=== PATIENT | male | born 1935 | race Caucasian/White ===

== ENCOUNTER 2018-07-14 00:55 | Emergency (ER) | payer OTHER, BC ==
[~2018-07-14] VITALS: Ht 172.7 cm; Wt 79.4 kg
[~2018-07-14 00:55] MED LIST: ACETAMINOPHEN325 M1 PO; ACETAMINOPHEN325 MG PO; ALBUTEROL INHAL17 GM IH; ALDACTONE25 MG PO; AVELOX 400 MG400 MG PO; CENTRUM SILVER1 EAC4 PO; COUMADIN 5 MG TA5 M1 PO; COUMADIN7.5 MG PO; DETROL LA4 MG PO; DILTIAZEM 24HR180 M2 PO; DILTIAZEM 24HR180 MG PO; DILTIAZEM 24HR360 MG PO; DILTIAZEM HCL90 MG PO; GLUCOPHAGE1000 MG PO; IRON325 PO; LANOXIN 0.120.125 M1 PO; LANOXIN 0.120.125 M2 PO; LIPITOR10 MG PO; OXYBUTYNIN CHLO15 MG PO; PROTONIX40 M2 PO; TRIAMTERENE-HC1 EAC1 PO; TYLENOL325 MG PO
[2018-07-14] MEDS ORDERED: TYLENOL325 MG PO (02:00)
[2018-07-14] MEDS ORDERED: ASPIR 8181 MG PO (02:00)
[2018-07-14] MEDS ORDERED: LIPITOR 20 MG T20 M1 PO (02:01)
[2018-07-14] MEDS ORDERED: CARDIZEM CD120 MG PO (02:02)
[2018-07-14] MEDS ORDERED: LASIX 40 MG TAB40 M2 PO (02:04)
[2018-07-14] MEDS ORDERED: AMARYL2 MG PO (02:06)
[2018-07-14] MEDS ORDERED: COZAAR 25 MG TA25 M1 PO (02:07)
[2018-07-14] MEDS ORDERED: GLUCOPHAGE XR750 MG PO (02:08)
[2018-07-14] MEDS ORDERED: SENOKOT-S1 TA2 PO (02:09)
[2018-07-14 02:23] LABS: ABSOLUTE NEUTROPHILS 6.6 thou/uL (1.4-8.2); BASOPHILS 0.6 % (0.0-2.0); EOSINOPHILS 6.2 % (0.0-3.0); HEMATOCRIT 31.2 % (42.0-52.0); HEMOGLOBIN 9.8 gm/dL (14.0-18.0); LYMPHOCYTES 12.8 % (24.0-44.0); MCH 23.1 pg (26.0-34.0); MCHC 31.4 g/dL (28.0-37.0); MCV 73.7 fL (80.0-100.0); MONOCYTES 8.6 % (1.0-8.0); PLATELET COUNT 189 thou/uL (150-400); POLYS 71.8 % (36.0-66.0); RBC 4.23 mil/uL (4.50-6.00); WBC 9.2 thou/uL (4.0-11.0)
[2018-07-14 02:26] LABS: ANION GAP 12 mmol/L (7-16); BUN 14 mg/dL (7-18); CALCIUM 8.4 mg/dL (8.5-10.1); CHLORIDE 104 mmol/L (98-107); CO2 21 mmol/L (21-32); CREATININE 1.1 mg/dL (0.7-1.3); GLUCOSE 128 mg/dL (74-106); POTASSIUM 3.9 mmol/L (3.5-5.1); SODIUM 137 mmol/L (136-145)
[2018-07-14 02:35] LABS: TROPONIN-I <0.06 ng/mL (<0.06)
[2018-07-14 05:23] VITALS: BP 119/56
--- NOTE | 2018-07-14 17:01 | EKG ---
[place] [address] [facility] [place] [address] ELECTROCARDIOGRAM REPORT Name: EDWARDO MORA Room #: DEP Velia#: [id number] ������������������ Admission: 07/14/18 ������������������ Attend Phys: Discharge: 07/14/18 ������������������ Date of : 37 Report #: [id number] ����������������������������������������������������������������� [id number] THIS REPORT FOR: //name// [facility] ED Test Date: 2018-07-14 Test Time: 01:14:24 Pat Name: EDWARDO MORA Department: Room: Gender: [place] [place] Manager: ANJELICA : 1935 Requested By: Daphne Cui Order Number: [id number] MD: Isidro Rosenbaum Measurements Intervals [place] Rate: 95 P: 0 [place]: 112 QRS: -56 QRSD: 149 T: 122 QT: 379 QTc: 477 Interpretive Statements Ventricular-paced complexes RBBB and LAFB Compared to ECG 07/28/2014 08:39:50 Left anterior fascicular block now present Atrial fibrillation no longer present ST (T wave) deviation no longer present Electronically Signed On 07-14-2018 17:00:50 CDT by Isidro Rosenbaum [email or web address] ��������������������������������������������� <ELECTRONICALLY SIGNED> ���������������������������������������� By: Isidro Rosenbaum MD ��������������������������������������������� 07/14/18 1700 0114 0114 Isidro Rosenbaum MD /EPI
== END 2018-07-14 05:44 | disposition home or self-care (01) ==
LOC: ER 00:55
PROVIDERS: Emergency Medicine
DX: R06.02 Shortness of breath (principal); I48.91 Unspecified atrial fibrillation; E11.9 Type 2 diabetes mellitus without complications; Z87.891 Personal history of nicotine dependence; Z90.49 Acquired absence of other specified parts of digestive tract

== ENCOUNTER 2020-06-17 15:38 | Inpatient (IN) | payer OTHER, BC ==
[~2020-06-17] VITALS: Ht 172.7 cm; Wt 89.8 kg
[~2020-06-17 15:38] MED LIST changes: +AMARYL2 MG PO; +ASPIR 8181 MG PO; +CARDIZEM CD120 MG PO; +CEPHALEXIN500 MG PO; +COZAAR 25 MG TA25 M1 PO; +DILTIAZEM 24HR180 M1 PO; +FINASTERIDE5 MG PO; +GLUCOPHAGE XR750 MG PO; +LASIX 40 MG TAB40 M2 PO; +LIPITOR 20 MG T20 M1 PO; +SENOKOT-S1 TA2 PO; +TAMSULOSIN HCL0.4 MG PO
[2020-06-17 15:40] VITALS: BP 114/49
[2020-06-17 17:32] LABS: ABSOLUTE NEUTROPHILS 11.4 thou/uL (1.4-8.2); BASOPHILS 0.5 % (0.0-2.0); EOSINOPHILS 1.9 % (0.0-3.0); HEMATOCRIT 26.1 % (42.0-52.0); HEMOGLOBIN 8.5 gm/dL (14.0-18.0); LYMPHOCYTES 9.8 % (24.0-44.0); MCH 27.9 pg (26.0-34.0); MCHC 32.6 g/dL (28.0-37.0); MCV 85.5 fL (80.0-100.0); PLATELET COUNT 275 thou/uL (150-400); POLYS 79.8 % (36.0-66.0); RBC 3.05 mil/uL (4.50-6.00); RDW 18.3 % (10.5-14.5); WBC 14.3 thou/uL (4.0-11.0)
[2020-06-17 17:43] LABS: INR 1.1; PROTIME 11.4 Seconds (9.3-11.4)
[2020-06-17 17:44] LABS: APTT 20.7 Seconds (24.5-32.8)
[2020-06-17 17:51] LABS: URINE BILIRUBIN NEGATIVE (Negative); URINE BLOOD NEGATIVE (Negative); URINE CLARITY CLEAR; URINE COLOR YELLOW; URINE GLUCOSE-RANDOM* NEGATIVE (Negative); URINE KETONES NEGATIVE (Negative); URINE NITRITE-REFLEX NEGATIVE (Negative); URINE PROTEIN (DIPSTICK) NEGATIVE (Negative); URINE SPECIFIC GRAVITY >= 1.030 (1.005-1.035); URINE UROBILINOGEN 0.2 E.U./dl (0.2-1.0)
[2020-06-17 17:56] LABS: URINE LEUKOCYTES-REFLEX 1+ (Negative)
[2020-06-17 17:56] LABS: CALCIUM 7.8 mg/dL (8.5-10.1); CREATININE 1.3 mg/dL (0.7-1.3); POTASSIUM 5.2 mmol/L (3.5-5.1)
[2020-06-17 18:02] LABS: ALBUMIN 3.3 g/dL (3.4-5.0); TOTAL BILIRUBIN 0.7 mg/dL (0.2-1.0); TOTAL PROTEIN 6.3 g/dL (6.4-8.2)
[2020-06-17 18:15] LABS: BACTERIA-REFLEX 1-9 Few /HPF (None Seen); SQUAMOUS None Seen /LPF (0-3); URINE RBC None Seen /HPF (0-2); URINE WBC-REFLEX 6-15 Few /HPF (0-5)
[2020-06-17 18:16] LABS: CASTS None Seen /LPF (None Seen); CRYSTALS None Seen /LPF (None Seen)
[2020-06-17 19:49] VITALS: BP 109/70
[2020-06-17 20:11] VITALS: BP 119/74
[2020-06-17 20:55] VITALS: BP 132/87
--- NOTE | 2020-06-17 22:05 | NUR ---
PT ADMITTED FROM HOME. PT WAS IN ED THIS EARLY AM AND RETURNED AFTER HAVING CONTINUED GI BLEED X 3 AT HOME. PT HAD LARGE BRIGHT RED STOOL IN ED X1. PT SOA WITH EXERTION, DUSKY SKIN TONE. 02 NC, HR IRREG HX AFIBB. PT TALKATIVE CHEERFUL NOT SOA WITH TALKING. PT RECEIVED FLUIDS AND ANTIBIOTICS IN ED. PT SIGNED CONSENT FOR BLOOD. HOME MEDS REVIEWED WITH WHILE PT WAS IN ED.
[2020-06-17 22:52] VITALS: BP 122/73; BP 128/83
--- NOTE | 2020-06-17 23:43 | NUR ---
PT REPORTING FEELING BETTER SOON RBC TRANSFUSION STARTED, PT VERBALIZED HE WAS PLEASED WITH HIS BP.
[2020-06-18] VITALS (42 sets, daily range): BP systolic 96–138; BP diastolic 52–107
--- NOTE | 2020-06-18 00:26 | NUR ---
PT HAD BM WHILE TRANSFUSION GOING REPORTED MODERATED DARK RED LIQUID STOOL BY BOILER CONTROL TECHNICIAN.
--- NOTE | 2020-06-18 01:56 | NUR ---
PT REPORTED ALWAYS FEELINGS SOA WITH MOVEMENT, BLOOD COMPLETED. PT REPORTS PLANS ON 06/24 TO HAVE CARPAL TUNNEL SYNDROME ON L HAND.
--- NOTE | 2020-06-18 06:45 | NUR ---
PROVIDER NOTIFIED LAST NIGHT THAT PT DID NOT TAKE HIS AM MEDS. WELL THAT HOME MEDS WERE REVIEWED WITH ED NURSE. NO ORDERS PLACED WILL HAVE DAY SHIFT F/U WITH
--- NOTE | 2020-06-18 09:39 | EKG ---
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: claudia : 1935 Requested By: Eddie Carver Order Number: [id number] MD: Zuhair Gaytan Measurements Intervals [place] Rate: 110 P: 0 [place]: 108 QRS: -74 QRSD: 138 T: 133 QT: 353 QTc: 478 Interpretive Statements Ventricular-paced complexes No further rhythm analysis attempted due to paced rhythm Compared to ECG 06/16/2020 23:00:52 No significant change was found Electronically Signed On 06-18-2020 9:39:12 CDT by Zuhair Gaytan [email or web address] <ELECTRONICALLY SIGNED> By: Zuhair Gaytan MD, [facility] 06/18/20 0939 22 22 Zuhair Gaytan MD, FACC /EPI
--- NOTE | 2020-06-18 10:18 | NUR ---
ASSUMED PATIENT CARE AT 0700. A/O X4. HAD TWO BRIGHT RED BM BEFORE 0900. CALLED GAVI RUBIN THAT WILL SEE PT SOON. ASSISTED PT TO BSC AT 0950 NOTED PATIENT LOST CONSCIOUSNESS. CODE BLUE CALLED. PT WAKE UP AFTER BACK TO BED. WILL GIVEN PT RBC THEN TRANSFER TO ICU. KEEP MONITOR.
[2020-06-18 10:29] LABS: HEMATOCRIT 21.8 % (42.0-52.0); HEMOGLOBIN 7.1 gm/dL (14.0-18.0); MCHC 32.6 g/dL (28.0-37.0); MCV 85.9 fL (80.0-100.0); RBC 2.54 mil/uL (4.50-6.00); RDW 17.3 % (10.5-14.5); WBC 16.9 thou/uL (4.0-11.0)
[2020-06-18 10:36] LABS: ANION GAP 13 mmol/L (7-16); BUN 27 mg/dL (7-18); CALCIUM 7.7 mg/dL (8.5-10.1); CHLORIDE 107 mmol/L (98-107); CO2 17 mmol/L (21-32); CREATININE 1.2 mg/dL (0.7-1.3); GLUCOSE 193 mg/dL (74-106); POTASSIUM 4.9 mmol/L (3.5-5.1); SODIUM 137 mmol/L (136-145)
[2020-06-18 10:41] LABS: MAGNESIUM 1.9 mg/dL (1.8-2.4); TROPONIN-I <0.06 ng/mL (<0.06)
--- NOTE | 2020-06-18 12:05 | NUR ---
Pt. became syncopal on BSC-DAIRY HELPER activated-see flowsheet
--- NOTE | 2020-06-18 12:44 | NUR ---
ORDERS RECEIVED FOR EVAL AND TREAT HOWEVER Pt HAD ELECTROTYPER APPRENTICE ACTIVATED AND WILL BE TRANSFERRING TO ICU. WILL PLACE ON HOLD AND WILL AWAIT NEW ORDERS TO INIITATE WHEN APPROPRIATE
--- NOTE | 2020-06-18 15:02 | NUR ---
received orders for ot eval and treat. orders received at 0949 on 06/18/20, code blue called after ot orders recevied. pt. transferred to icu, change in medical status warranting a request for new orders. placing pt. on hold, request new orders when pt. is medicallly stable to participate in ot services.
--- NOTE | 2020-06-18 16:24 | EKG ---
[place] [address] [place] [address] ELECTROCARDIOGRAM REPORT Name: EDWARDO MORA Room #: 240-P ADM IN M.R.#: [id number] Admission: 06/17/20 Attend Phys: dAen Mccray MD Discharge: Date of : 37 Report #: [id number] [facility] Test Date: 2020-06-18 Test Time: 09:56:37 Pat Name: EDWARDO MORA Department: Room: 240 Gender: M Patrol Driver: RENZO : 1935 Requested By: Aden Mccray Order Number: [id number] MD: Zuhair Gaytan Measurements Intervals [place] Rate: 121 P: [place]: QRS: -77 QRSD: 135 T: 144 QT: 347 QTc: 493 Interpretive Statements Afib/flut and V-paced complexes No further rhythm analysis attempted due to paced rhythm Compared to ECG 06/17/2020 19:23:28 No significant change was found Electronically Signed On 06-18-2020 16:23:57 CDT by Zuhair Gaytan [email or web address] <ELECTRONICALLY SIGNED> By: Zuhair Gaytan MD, [facility] 06/18/20 1623 5 Zuhair Gaytan MD, [facility] /EPI
[2020-06-18 17:27] LABS: HEMATOCRIT 23.1 % (42.0-52.0); HEMOGLOBIN 7.6 gm/dL (14.0-18.0); MCHC 32.9 g/dL (28.0-37.0); MCV 88.1 fL (80.0-100.0); RBC 2.62 mil/uL (4.50-6.00); RDW 17.6 % (10.5-14.5); WBC 12.9 thou/uL (4.0-11.0)
[2020-06-18 18:06] LABS: HBsAG-EMPLOYEE EXPOSURE Negative (Negative); HCV AB-EMPLOYEE EXPOSURE <0.1 (0.0-0.9)
--- NOTE | 2020-06-18 18:12 | NUR ---
PATIENT TRANSFER TO ICU AT 1245. UNIT OF PACKED RED CELLS INFUSING ON ARRIVAL. BLOOD PRESSURE WITHIN NORMAL LIMITS. ONE LARGE BLOODY STOOL AFTER ENEMA. PATIENT TRANSFERED TO GI LAB AT 1350. ARRIVED BACK TO ROOM AT 1500. DIET ADVANCED TO LIQUIDS. FAMILY AT BEDSIDE. UPDATED BY MYSELF AND GI VARNISH MIXER. WILL CONTINUE TO MONITOR.
[2020-06-19] VITALS (61 sets, daily range): BP systolic 83–134; BP diastolic 50–71
[2020-06-19 05:46] LABS: MCV 87.4 fL (80.0-100.0)
[2020-06-19 05:50] LABS: HEMATOCRIT 20.4 % (42.0-52.0); MCH 29.9 pg (26.0-34.0); MCHC 34.2 g/dL (28.0-37.0); RBC 2.33 mil/uL (4.50-6.00); RDW 17.7 % (10.5-14.5); WBC 10.8 thou/uL (4.0-11.0)
[2020-06-19 06:06] LABS: CALCIUM 7.6 mg/dL (8.5-10.1); CREATININE 1.2 mg/dL (0.7-1.3); MAGNESIUM 1.8 mg/dL (1.8-2.4); POTASSIUM 4.4 mmol/L (3.5-5.1)
--- NOTE | 2020-06-19 10:47 | NUR ---
chart review. he transferred down from 3w yesterday. GI on case. unable to visit with pt rt hospitalist in room visiting with pt and family at bedside. will cont following as needed for dc needs.
--- NOTE | 2020-06-19 16:37 | NUR ---
PATIENT PROGRESSING TOWARDS THE PLAN OF CARE. NO BLOODY STOOLS. PATIENT RECEIVING 1 U OF PRBC.
[2020-06-20] VITALS (22 sets, daily range): BP systolic 97–121; BP diastolic 49–74
[2020-06-20 05:29] LABS: HEMATOCRIT 22.4 % (42.0-52.0); HEMOGLOBIN 7.6 gm/dL (14.0-18.0); MCH 29.9 pg (26.0-34.0); MCV 88.1 fL (80.0-100.0); RBC 2.54 mil/uL (4.50-6.00); RDW 16.8 % (10.5-14.5); WBC 10.2 thou/uL (4.0-11.0)
[2020-06-21] VITALS (8 sets, daily range): BP systolic 97–112; BP diastolic 51–68
[2020-06-21 09:49] LABS: HEMATOCRIT 24.8 % (42.0-52.0); HEMOGLOBIN 8.3 gm/dL (14.0-18.0); MCHC 33.6 g/dL (28.0-37.0); MCV 89.4 fL (80.0-100.0); RBC 2.77 mil/uL (4.50-6.00); RDW 17.1 % (10.5-14.5); WBC 10.1 thou/uL (4.0-11.0)
--- NOTE | 2020-06-21 11:00 | NUR ---
chart review, discussed during los. dc home with hh. cm visited with pt at bedside, cm cont to wear face mask and shield. list choices provided and he pick randy silva. referral sent and randy miner following for hh needs. dcp home with and randy miner h[facility] ( pt, ot, nursing). bedside nurse to fax dc orders to [phone]
[2020-06-21] MEDS ORDERED: GLUCOPHAGE500 MG PO (11:15)
--- NOTE | 2020-06-24 16:06 | PATH ---
[facility] [place] [address] PATHOLOGY RPT PROCEDURE Name: EDWARDO ROSE Room #: 240-P [facility] IN M.R.#: [id number] Admission: 06/17/20 Date of : 37 Discharge: 06/21/20 Report #: [id number] Path Case #: [id number] LCA Accession Number: [id number] . 01 Material submitted: . PART A: cecum - CECAL POLYP PART B: sigmoid colon - SIGMOID COLON POLYP X5. Modifiers: X5 PART C: rectum - RECTAL POLYP . 01 Clinical history: . COLONOSCOPY LOWER GI BLEED,ACUTE BLOOD LOSS ANEMIA,LEUKOCYTOSIS . 02 Diagnosis: A. Polyp, cecal polyp, endoscopic biopsy: - Polypoid mucosa with focal hyperplastic changes. - Negative for dysplasia. . B. Polyp x 5, sigmoid colon polyp, endoscopic biopsy: - Tubular adenoma identified in multiple fragments. - Negative for high grade dysplasia. . C. Polyp, rectal polyp, endoscopic biopsy: - Tubular adenoma. - Negative for high grade dysplasia. (IUV/db; 06/20/2020) LBQ 06/20/2020 0955 Local . 02 Electronically signed: . Rosalva Floyd MD, Pathologist NPI- [id number] . 01 Gross description: . A. The specimen is received in formalin, labeled "Edwardo Rose", "cecal polyp". Received are 2 segments of pale yun soft tissue measuring 0.3 and 0.4 cm. The specimen is entirely submitted in cassette A1. . B. The specimen is received in formalin, labeled "RoseEdwardo", "sigmoid colon polyp x5". Received are multiple segments of pale yun soft tissue ranging in size from 0.1 cm to 0.3 cm. The specimen is entirely submitted in cassette B1. . C. The specimen is received in formalin, labeled "Rose Edwardo", "rectal polyp". Received are 2 segments of pale yun soft tissue measuring 0.1 and 0.2 cm. The specimen is entirely submitted in cassette C1.(SNA; 06/19/2020) RACHELLE/OMKAR 06/19/[address] [address] PATHOLOGY RPT PROCEDURE Name: EDWARDO ROSE Room #: 240-P DIS IN M.R.#: [id number] Admission: 06/17/20 Date of : 37 Discharge: 06/21/20 Report #: [id number] Path Case #: [id number] . 02 Pathologist provided ICD-10: D12.5, D12.8 . 02 CPT . 617837, 219109, 257105 Specimen Comment: A courtesy copy of this report has been sent to [phone] Specimen Comment: [phone], Specimen Comment: Report sent to ,DR MANZO / DR MONROY Specimen Comment: A duplicate report has been generated due to demographic updates. Performed at: [address], [place] [id number] MD Zeferino Atkins MD Phone: [phone] Performed at: [address] [id number] MD Rosalva Floyd MD Phone: [phone]
== END 2020-06-21 15:25 | disposition home health service (06) | DRG 377 ==
LOC: ER 15:38 → EROBS 18:56 → 3W 18:56 → ICU 06-18 12:48
PROVIDERS: Emergency Medicine; Nurse Practitioner; ADMIT Internal Medicine; ATTEND Internal Medicine
DX: K57.31 Diverticulosis of large intestine without perforation or abscess with bleeding (principal); J96.00 Acute respiratory failure, unspecified whether with hypoxia or hypercapnia; R65.11 Systemic inflammatory response syndrome (SIRS) of non-infectious origin with acute organ dysfunction; D62 Acute posthemorrhagic anemia; I48.20 Chronic atrial fibrillation, unspecified; Z20.822 Contact with and (suspected) exposure to COVID-19; E11.9 Type 2 diabetes mellitus without complications; R53.81 Other malaise; I10 Essential (primary) hypertension; D72.829 Elevated white blood cell count, unspecified; M19.90 Unspecified osteoarthritis, unspecified site; D36.9 Benign neoplasm, unspecified site; K64.8 Other hemorrhoids; K63.5 Polyp of colon; Z79.01 Long term (current) use of anticoagulants; Z90.49 Acquired absence of other specified parts of digestive tract; Z98.49 Cataract extraction status, unspecified eye; Z87.891 Personal history of nicotine dependence
CPT/HCPCS: 10078; 10203; 10879; 62110; 62900; 70005; 85076

== ENCOUNTER 2020-11-15 09:22 | Inpatient (IN) | payer OTHER, BC ==
[~2020-11-15] VITALS: Ht 172.7 cm; Wt 77.4 kg
--- NOTE | ~2020-11-15 | EMS ---
[address] [address] EMS Patient Care Report Name: EDWARDO MORA Room #: 214-P ADM IN M.R.#: [id number] Admission: 11/15/20 Attend Phys: Sebastian Smith MD Discharge: Date of : 36 Report #: [id number] THIS REPORT FOR: //name// Report Transmitted: 11/18/2020 11:23 EMS Care Summary [place], [place]/[facility] Incident [id number] @ 11/15/2020 08:37 Incident Location [address] [place] [address] Patient EDWARDO MORA Male, 85 Years 1935 Patient Address [address] [place] [address] Patient History Atrial Fibrillation, Patient Allergies Other drug allergy, Patient Medications Diltiazem, ASA, Digoxin, Chief Complaint WEAKNESS Disposition Transported No Lights/[place] Dispatch Reason Sick Person Transported To [facility] Narrative ARRIVED ON SCENE TO PUMPER CREW ALREADY INSIDE RESIDENCE WITH PT. PT MET EMS AT DOOR STATING HER HAS BEEN FEELING WEAK AND LETHARGIC FOR THE PAST 2 DAYS AND SLOWLY GETTING WORSE. ON ARRIVAL TO PT; ALERT AND TRACKING TALKING WITH PUMPER CREW. PT STATES HE HAS BEEN WEAK SINCE WEDNESDAY AND [address] [address] EMS Patient Care Report Name: EDWARDO MORA Room #: 214-P ADM IN M.Ace.#: [id number] Admission: 11/15/20 Attend Phys: Sebastian Smith MD Discharge: Date of : 36 Report #: [id number] GETTING WORSE. PT ABLE TO MOVE AROUND BUT HAS TO USE HIS WALKER. NEGATIVE FOR STROKE ASSESSMENT. PT FAMILY WANTS PT TO BE TRANSPORTED TO [facility] FOR CONTINUING OF CARE. PT ASSISTED ONTO STRETCHER, SEATBELTED WITH RAILS UP. IN AMBULANCE NO CHANGES IN ROUTE TO HOSPITAL. CARE TRANSFERRED TO RN AT ER. Initial Vitals @09:11P: 40,SpO2: 92, @08:54P: 103,BP: 99/73,CO: 0,SpO2: 93, @09:11P: 72,BP: 97/51,CO: 0,SpO2: 92, @09:01P: 67,CO: 1,SpO2: 93,HI Suspected: false @PTAP: 102,R: 18,BP: 104/65,Pain: 0/10,GCS: 15,Temp: 99.1F,Glucose: 133,CO: 0,SpO2: 93,Revised Trauma: 12, @09:09P: 91,R: 18,SpO2: 95, @09:07P: 62,R: 18,Pain: 0/10,GCS: 15,Glucose: 133,SpO2: 92,HI Suspected: false @09:12P: 62,R: 18,Pain: 0/10,GCS: 15,Glucose: 133,SpO2: 92,HI Suspected: false Assessments @09:06MENTAL:Person Oriented,Event Oriented,Place Oriented,Time Oriented,SKIN:HEENT:Neck/Airway: No Abnormalities,LUNG SOUNDS:General: No Abnormalities,Left Upper: No Abnormalities,Right Upper: No Abnormalities,Left Lower: No Abnormalities,Right Lower: No Abnormalities,ABDOMEN:General: No Abnormalities,Left Upper: No Abnormalities,Right Upper: No Abnormalities,Left Lower: No Abnormalities,Right Lower: No Abnormalities,PELVIS//GI:No Abnormalities,EXTREMITIES:Capillary Refill: Left Upper: < 2 Sec,Left Arm: No Abnormalities,Right Arm: No Abnormalities,Left Leg: No Abnormalities,Right Leg: No Abnormalities,PULSE:Radial: 2+ Normal,NEURO: Impression Generalized Weakness Procedures @09:06ALS AssessmentResponse: UnchangedSucceeded@09:0912-Lead ECGResponse: UnchangedSucceeded@09:0712-Lead ECGResponse: UnchangedSucceeded Timeline 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,BP: 104/65 M,PULSE: 102,RR: 18 R,SPO2: 93 Ox,ETCO2: ,B,PAIN: 0,GCS: 15, 08:35,Call Received 08:35,Dispatch Notified 08:37,Dispatched 08:37,En Route 08:47,On Scene 08:47,At Patient 08:54,BP: 99/73 M,PULSE: 103,RR: R,SPO2: 93 Ox,ETCO2: ,BG: ,PAIN: ,GCS: , 09:01,BP: / M,PULSE: 67,RR: R,SPO2: 93 Ox,ETCO2: ,BG: ,PAIN: ,GCS: , 09:05,Depart Scene [address] [address] EMS Patient Care Report Name: EDWARDO MORA Room #: 214-P [facility] IN ..#: [id number] Admission: 11/15/20 Attend Phys: Sebastian Smith MD Discharge: Date of : 37 Report #: [id number] 09:06,ALS Assessment,Response: UnchangedSucceeded, 09:07,12-Lead ECG,Response: UnchangedSucceeded, 09:07,BP: / M,PULSE: 62,RR: 18 R,SPO2: 92 Ox,ETCO2: ,B,PAIN: 0,GCS: 15, 09:09,12-Lead ECG,Response: UnchangedSucceeded, 09:09,BP: / M,PULSE: 91,RR: 18 R,SPO2: 95 Ox,ETCO2: ,BG: ,PAIN: ,GCS: , 09:11,BP: / M,PULSE: 40,RR: R,SPO2: 92 Ox,ETCO2: ,BG: ,PAIN: ,GCS: , 09:11,BP: 97/51 M,PULSE: 72,RR: R,SPO2: 92 Ox,ETCO2: ,BG: ,PAIN: ,GCS: , 09:12,BP: / M,PULSE: 62,RR: 18 R,SPO2: 92 Ox,ETCO2: ,B,PAIN: 0,GCS: 15, 09:18,At Destination 09:33,Call Closed Disclaimer v1.1 Copyright 2020 [employer] This EMS Care Summary contains data elements from the applicable legal record (which may be displayed differently). It is designed to provide pertinent information for the following purposes: continuity of care, clinical quality, and state data reporting. The complete legal record is available to ED staff and administrators of the receiving hospital in [employer]'s Patient Tracker. All data is provided "as is."
[~2020-11-15 09:22] MED LIST changes: +GLUCOPHAGE500 MG PO
[2020-11-15 09:23] VITALS: BP 110/61
[2020-11-15 09:55] LABS: ABSOLUTE NEUTROPHILS 9.6 thou/uL (1.4-8.2); BASOPHILS 0.6 % (0.0-2.0); EOSINOPHILS 0.2 % (0.0-3.0); HEMATOCRIT 29.3 % (42.0-52.0); HEMOGLOBIN 9.5 gm/dL (14.0-18.0); LYMPHOCYTES 3.4 % (24.0-44.0); MCH 25.8 pg (26.0-34.0); MCHC 32.5 g/dL (28.0-37.0); MCV 79.5 fL (80.0-100.0); MONOCYTES 6.8 % (1.0-8.0); PLATELET COUNT 262 thou/uL (150-400); RBC 3.68 mil/uL (4.50-6.00); RDW 18.7 % (10.5-14.5); WBC 10.7 thou/uL (4.0-11.0)
[2020-11-15 10:33] LABS: ALBUMIN 0.5 g/dL (3.4-5.0); ANION GAP 12 mmol/L (7-16); BUN 5 mg/dL (7-18); CHLORIDE 120 mmol/L (98-107); CO2 15 mmol/L (21-32); CREATININE 0.3 mg/dL (0.7-1.3); DIRECT BILIRUBIN < 0.1 mg/dL (<0.1-0.2); GLUCOSE 64 mg/dL (74-106); LIPASE 31 U/L (73-393); SGOT 17 U/L (15-37); SGPT 14 U/L (16-63); SODIUM 147 mmol/L (136-145); TOTAL BILIRUBIN 0.3 mg/dL (0.2-1.0); TOTAL PROTEIN 2.3 g/dL (6.4-8.2)
[2020-11-15 10:46] LABS: CALCIUM < 5.0 mg/dL (8.5-10.1); POTASSIUM 1.4 mmol/L (3.5-5.1)
[2020-11-15 11:59] LABS: URINE BILIRUBIN NEGATIVE (Negative); URINE BLOOD NEGATIVE (Negative); URINE CLARITY CLEAR; URINE COLOR YELLOW; URINE GLUCOSE-RANDOM* NEGATIVE (Negative); URINE KETONES NEGATIVE (Negative); URINE LEUKOCYTES-REFLEX TRACE (Negative); URINE NITRITE-REFLEX NEGATIVE (Negative); URINE PROTEIN (DIPSTICK) NEGATIVE (Negative)
[2020-11-15 12:07] LABS: ANISOCYTOSIS 1+; PLATELET ESTIMATE NORMAL
[2020-11-15 14:40] VITALS: BP 94/54
--- NOTE | 2020-11-15 14:40 | 2DMMODE ---
[facility] [place] [address] [place] [address] 2 D/M-MODE ECHOCARDIOGRAM Name: EDWARDO MORA Room #: 170-8 ADM IN M.R.#: [id number] Admission: 11/15/20 Attend Phys: Sebastian Smith MD Discharge: Date of : 36 Report #: [id number] THIS REPORT FOR: cc: She Morales MD, Paula V. MD Santiago, Patrick MD [facility] ~ APPROVED REPORT Study performed: 11/15/2020 13:53:23 EXAM: Comprehensive 2D, Doppler, and color-flow Echocardiogram Patient Location: ER Status: routine BSA: 1.94 HR: 94 bpm BP: 102/54 mmHg Rhythm: Atrial Fibrillation Other Information Study Quality: Fair Technically limited study due to lung interference, thin body habitus, flat on back. Indications Weakness. Hx: TAVR, Afib, PPM. 2D Dimensions IVSd: 9.20 (7-11mm) LVDd: 56.29 mm PWd: 9.88 (7-11mm) LVDs: 40.68 (25-40mm) Left Atrium: 47.87 (27-40mm) Volumes Left Atrial Volume (Systole) Single Plane 4CH: 105.79 mL Aortic Valve AoV Peak Pancho.: 1.05 m/s AO Peak Gr.: 4.41 mmHg LVOT Max P.80 mmHg LVOT Max V: 0.67 m/s [facility] [address] [place] [address] 2 D/M-MODE ECHOCARDIOGRAM Name: EDWARDO MORA Room #: 170-8 ADM IN M.R.#: [id number] Admission: 11/15/20 Attend Phys: Sebastian Smith MD Discharge: Date of : 36 Report #: [id number] Mitral Valve MV Decel. Time: 188.15 ms MV E Max Pancho.: 1.07 m/s Pulmonary Valve PV Peak Pancho.: 1.01 m/s PV Peak Gr.: 4.06 mmHg Tricuspid Valve TR Peak Pancho.: 2.54 m/s RAP Estimate: 10.00 mmHg TR Peak Gr.: 26.00 mmHg PA Pressure: 36.00 mmHg Left Ventricle The left ventricle is normal size. There is normal left ventricular wall thickness. Left ventricular systolic function is normal. LVEF is 55%. This study is not technically sufficient to allow evaluation of the LV diastolic function due to atrial fibrillation. Right Ventricle The right ventricle is normal size. The right ventricular systolic function is normal. Pacemaker lead is present in the right ventricle. Atria Biatrial enlargement. Aortic Valve History of TAVR. Porcine valve. No aortic regurgitation is present. There is no aortic valvular stenosis. Mitral Valve The mitral valve is normal in structure. There is mitral annular calcification. Trace mitral regurgitation. Tricuspid Valve The tricuspid valve is normal in structure. Mild tricuspid regurgitation. Estimated PAP is 36mmHg. Pulmonic Valve The pulmonary valve is normal in structure. Trace pulmonic regurgitation. Great Vessels The aortic root is normal in size. Ascending aorta is not well visualized. IVC is dilated and collapses <50% with inspiration. [facility] [address] [place] [address] 2 D/M-MODE ECHOCARDIOGRAM Name: EDWARDO MORA Room #: 170-8 ADM IN [facility].#: [id number] Admission: 11/15/20 Attend Phys: Sebastian Smith MD Discharge: Date of : 36 Report #: [id number] <Conclusion> Study performed in atrial fibrillation Technically difficult study Normal left ventricular size/wall thickness Ejection fraction 55% Normal right ventricular size/function Mild biatrial enlargement Color-flow Doppler studies performed the aortic/mitral/tricuspid/pulmonary valve History of TAVR, no evidence of stenosis detected. Peak gradient of 4.4 mmHg Normal mitral valve structure and function Mild tricuspid valve insufficiency Pulmonary systolic pressure estimated 36 mmHg No pericardial effusion Normal aortic root size Pacer wire detected in the RV <ELECTRONICALLY SIGNED> By: Dewey Delong MD, [facility] 11/15/20 1440 1440 1440 Dewey Delong MD, FACC /INF
--- NOTE | 2020-11-15 14:54 | EKG ---
[place] [address] [facility] [place] [address] ELECTROCARDIOGRAM REPORT Name: EDWARDO MORA Room #: 170-8 ADM IN M.R.#: [id number] Admission: 11/15/20 Attend Phys: Sebastian Smith MD Discharge: Date of : 36 Report #: [id number] 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 : 1935 Requested By: Sebastian Smith Order Number: [id number] : Dewey Delong Measurements Intervals [place] Rate: 97 P: 0 [place]: 109 QRS: 216 QRSD: 161 T: 30 QT: 402 QTc: 511 Interpretive Statements Ventricular-paced complexes No further analysis attempted due to paced rhythm Baseline wander in lead(s) V1 Compared to ECG 06/18/2020 09:56:37 Atrial fibrillation no longer present Electronically Signed On 11-15-2020 14:54:04 CDT by Dewey Delong [email or web address] <ELECTRONICALLY SIGNED> By: Dewey Delong MD, [facility] 11/15/20 1454 Dewey Delong MD, [facility] /EPI
[2020-11-15 18:07] VITALS: BP 118/66
[2020-11-15 19:56] VITALS: BP 117/56
[2020-11-15 22:50] VITALS: BP 135/81
[2020-11-16] VITALS (15 sets, daily range): BP systolic 99–156; BP diastolic 43–78
[2020-11-16 05:10] LABS: HEMATOCRIT 30.1 % (42.0-52.0); HEMOGLOBIN 9.8 gm/dL (14.0-18.0); MCH 25.9 pg (26.0-34.0); MCHC 32.4 g/dL (28.0-37.0); MCV 79.7 fL (80.0-100.0); RBC 3.78 mil/uL (4.50-6.00); WBC 11.9 thou/uL (4.0-11.0)
[2020-11-16 05:32] LABS: ALBUMIN 2.5 g/dL (3.4-5.0); CREATININE 0.8 mg/dL (0.7-1.3); MAGNESIUM 2.4 mg/dL (1.8-2.4); TOTAL BILIRUBIN 0.9 mg/dL (0.2-1.0); TOTAL PROTEIN 5.9 g/dL (6.4-8.2)
[2020-11-16 05:34] LABS: CALCIUM 7.9 mg/dL (8.5-10.1); POTASSIUM 4.7 mmol/L (3.5-5.1)
--- NOTE | 2020-11-16 08:31 | NUR ---
ASSUMED PATIENT CARE AT 1900H 11/15/20.ON ROOM AIR BREATHING SPONTANEOUSLY.CONNECTED TO MASTER OF CEREMONIES SHOWING PACED RYTHM BUT EPISODES OF AFIB RVR, RATE WAS HIGH 150'S, INFORMED TABLE KEEPER.CARDIZEM 10MG BOLUS GIVEN BUT RATE WAS STILL NOT CONTROLLED.CONSULTED DR. KINNEY, ORDERS TAKEN.CARDIZEM BOLUS NOT GIVEN ANYMORE BLOOD PRESSURE WAS BORDERLINE, INFORMED DR. KINNEY ABOUT IT.STARTED CARDIZEM DRIP AT 10MG/HR,MONITORED BLOOD PRESSURE AND RECORDED.VITALLY STABLE THROUGHOUT THE SHIFT.ALL NEEDS ATTENDED.
[2020-11-16 10:32] LABS: % SATURATION 11 % (20-39); IRON 20 ug/dL (65-175); TIBC 179 ug/dL (250-450)
[2020-11-16 10:34] LABS: ABSOLUTE RETIC COUNT 0.0809 10^6/uL; OBSERVED RETIC COUNT 2.15 % (0.6-2.6)
[2020-11-16 10:59] LABS: FOLIC ACID 5.4 ng/mL (8.6-58.9)
--- NOTE | 2020-11-16 17:43 | NUR ---
PT NOW SLEEPING. HE HAS BEEN VERY WEAK IHC6YRI THE DAY WITH SOFT BP. PULSE HAS STAYED BELOW 100 THROUGH THE DAY. DC DRIP AND NOW OF DILTIAZEM PO. WORKED WITH PT/OT BUT DID NOT TOLERATED PT WELL. RESP. NON LABORED. REMAINS ON ROOM AIR. WILL CONT WITH PLAN OF CARE.
[2020-11-17 04:15] LABS: ABSOLUTE NEUTROPHILS 8.5 thou/uL (1.4-8.2); BASOPHILS 0.3 % (0.0-2.0); EOSINOPHILS 0.6 % (0.0-3.0); HEMATOCRIT 28.2 % (42.0-52.0); HEMOGLOBIN 9.3 gm/dL (14.0-18.0); LYMPHOCYTES 5.1 % (24.0-44.0); MCH 26.3 pg (26.0-34.0); MCHC 33.1 g/dL (28.0-37.0); MCV 79.4 fL (80.0-100.0); MONOCYTES 8.3 % (1.0-8.0); PLATELET COUNT 236 thou/uL (150-400); POLYS 85.7 % (36.0-66.0); RBC 3.55 mil/uL (4.50-6.00); RDW 18.8 % (10.5-14.5); WBC 9.9 thou/uL (4.0-11.0)
[2020-11-17 04:18] LABS: ALBUMIN 2.3 g/dL (3.4-5.0); CALCIUM 7.8 mg/dL (8.5-10.1); CREATININE 0.9 mg/dL (0.7-1.3); MAGNESIUM 1.9 mg/dL (1.8-2.4); POTASSIUM 4.5 mmol/L (3.5-5.1); TOTAL PROTEIN 5.6 g/dL (6.4-8.2)
[2020-11-17 05:15] VITALS: BP 112/68
[2020-11-17 07:23] VITALS: BP 108/68
--- NOTE | 2020-11-17 08:10 | NUR ---
PT LYING IN BED. VOIDING PER URINAL. DENIES PAIN. RESTING COMFORTABLY. NO NEEDS VOICED. CALL LIGHT WITHIN REACH. FREQUENT OBSERVATION.
[2020-11-17 12:12] VITALS: BP 111/70
[2020-11-17 16:15] VITALS: BP 117/72
--- NOTE | 2020-11-17 17:19 | NUR ---
PT CONT TO BE QUITE WEAK. TRANSFER WITH ACTIVE ONE ASSIST. HAD LOW BP EALIER BUT HAS CORRECTED. HE IS PLEASANTLY CONFUSED. FAMILY HERE TO VISIT. SPOKE WITH DTR AND ABOUT POSSIBLE REHAB BEFORE PT GOES HOME. WILL CONT WITH PLAN OF CARE.
[2020-11-17 19:45] VITALS: BP 112/64
[2020-11-18 04:20] VITALS: BP 101/59
[2020-11-18 05:21] LABS: CALCIUM 7.7 mg/dL (8.5-10.1); CREATININE 0.8 mg/dL (0.7-1.3); MAGNESIUM 1.8 mg/dL (1.8-2.4); PHOSPHORUS 3.2 mg/dL (2.5-4.9)
[2020-11-18 05:59] LABS: ABSOLUTE NEUTROPHILS 6.8 thou/uL (1.4-8.2); BASOPHILS 0.6 % (0.0-2.0); EOSINOPHILS 1.5 % (0.0-3.0); HEMATOCRIT 27.1 % (42.0-52.0); LYMPHOCYTES 8.1 % (24.0-44.0); MCH 26.4 pg (26.0-34.0); MCHC 33.2 g/dL (28.0-37.0); MCV 79.7 fL (80.0-100.0); MONOCYTES 9.2 % (1.0-8.0); PLATELET COUNT 236 thou/uL (150-400); POLYS 80.6 % (36.0-66.0); RDW 18.7 % (10.5-14.5); WBC 8.4 thou/uL (4.0-11.0)
--- NOTE | 2020-11-18 06:34 | NUR ---
SLEPT MOST OF SHIFT. ASSIST TO MOVE AROUND IN BED NEEDED. INCONTINENT OF URINE AT TIMES. PERICARE COMPLETED NEEDED. WORKING ON GOALS AND PLAN OF CARE FOR NOC. CONTINUE TO ASSES CLOSELY. ENCOURAGE SNACKS AND ENSURE.
[2020-11-18 07:55] VITALS: BP 107/60
--- NOTE | 2020-11-18 10:40 | NUR ---
daughter carol ann dalal [phone]
[2020-11-18 12:00] VITALS: BP 88/43
[2020-11-18] MEDS ORDERED: PEPCID20 MG PO (12:22)
[2020-11-18] MEDS ORDERED: FOLIC ACID1 MG PO (12:22)
[2020-11-18] MEDS ORDERED: CARDIZEM CD120 MG PO (12:22)
[2020-11-18] MEDS ORDERED: DIGOXIN250 MCG PO (12:22)
[2020-11-18] MEDS ORDERED: CALTRATE-600 W1 EACH PO (12:22)
[2020-11-18] MEDS ORDERED: ADULT LOW DOSE81 MG PO (12:22)
[2020-11-18] MEDS ORDERED: ELIQUIS5 MG PO (12:22)
[2020-11-18 13:03] VITALS: BP 95/51
--- NOTE | 2020-11-18 14:55 | NUR ---
ASSUMED CARE SHIFT CHAGNE. VSS C/O BACK PAIN MANAGED WITH PO PAIN MEDS O2 SATS WNL RA UP TO CHAIR MARIA FERNANDA WELL WORKED WITH OT/PT. [facility] TODAY FAMILY UPDATED. REPORT GIVEN TO 5N RN PT LEFT UNIT WITH ALL BELONGINGS.
--- NOTE | 2020-11-18 16:23 | NUR ---
Patient unable to be seen prior to transfer to rehab unit. Chart reviewed sp with team. 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 he cont to drives. Uses cane/walker in home and community. Indepenedent with adls. Patient admits with weakness, hypocalcemia. Patient evaled by [facility] and is accepted. [facility] liason sp with family regarding admission to [facility] all in agreement.
[2020-11-19 04:06] LABS: GLYCOHEMOGLOBIN (HGB A1C) 6.1 % (4.8-5.6)
[2020-11-20] MEDS ORDERED: ELIQUIS5 MG PO (11:46)
[2020-12-05] MEDS ORDERED: AMITIZA 24 MCG24 MC1 PO (14:57)
[2020-12-05] MEDS ORDERED: MAGOX 400400 MG PO (14:57)
[2020-12-05] MEDS ORDERED: REMERON 30 MG T30 M1 PO (14:57)
[2020-12-05] MEDS ORDERED: VITAMIN D325 MC2 PO (14:57)
[2020-12-05] MEDS ORDERED: MIRALAX17 GM PO (14:57)
[2020-12-05] MEDS ORDERED: ARTHRITIS PAIN100 GM TOP (14:57)
--- NOTE | 2020-12-06 13:42 | HC ---
[facility] [place] [address] CONSULTATION Name: EDWARDO MORA Room #: 214-P [facility] IN M.R.#: [id number] Admission: 11/15/20 Attend Phys: Sebastian Smith MD Discharge: 11/18/20 Date of : 37 Report #: [id number] THIS REPORT FOR: cc: She Morales MD, Paula V. MD Smithson,Vish Butterfield MD ~ DATE OF SERVICE: 11/18/2020 HISTORY OF PRESENT ILLNESS: The patient is an 85-year-old male with admission on 11/15/2020 with a 3-day history of weakness and fatigue. He is noted to have marked electrolyte abnormalities with hypokalemia and hypocalcemia. He also was noted to have evidence of total protein malnutrition, history of anorexia x6 months. He has atrial fibrillation with rapid ventricular response and is being followed by Cardiology. EGD was done at [facility] in the past year with records requested. Potassium is being replaced as well as his magnesium, which was severe and critical and the hypocalcemia. He does have diabetes. We are replacing his folic acid. He was noted to have a history of a Schatzki's ring and dilation in 2014 and plan includes discussion with GI to see if he needs repeat EGD. He does have anemia of chronic disease since 2013 and has had multiple transfusions. He has had some problems with confusion, disorientation, which clinically appears consistent with a metabolic encephalopathy. He also has significant generalized weakness and debilitation. We are seeing him in rehabilitation medicine consultation. PAST MEDICAL HISTORY: Includes TAVR ICD permanent pacemaker, diabetes mellitus, atrial fibrillation, Schatzki's ring with dilation. MEDICATIONS: Please see the full medication listing. ALLERGIES: No known drug allergies. SOCIAL HISTORY: Lives with , 2-story house. 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 He utilizes a walker at home and a cane in the community. 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 The patient is home alone, but likes to drive to a local casino. REVIEW OF SYSTEMS: No current complaints of chest pain, shortness of breath or abdominal discomfort. PHYSICAL EXAMINATION: GENERAL: He is a pleasant 85-year-old white male in no obvious distress. NEUROLOGIC: There is a latency to his responses. He has been disoriented to place. He will follow basic 1-step commands. Facies appeared symmetric. He has decreased range of motion of that left shoulder past about 90 degrees, which is noted to be premorbid. Otherwise, strength of the left upper extremity is [facility] [address] [place] [address] CONSULTATION Name: EDWARDO MORA Room #: 214-P [facility] IN M.R.#: [id number] Admission: 11/15/20 Attend Phys: Sebastian Smith MD Discharge: 11/18/20 Date of : 37 Report #: [id number] probably a grade 4-/5. Right upper extremity had better proximal range of motion of that shoulder close to normal with some mild decrease in range. Agree with the right upper extremity, strength is probably a grade 4-. Lower extremities, no focal calf swelling. Tone appeared to be intact. Reasonably intact proprioception, large toe on the right. I would grade his strength at probably a grade 4- to 3+/5. He was mod assist sit to stand. Gait was 15 feet min assist with a front-wheeled walker. Lower body dressing is mod assist. ASSESSMENT: An 85-year-old white male with the following problem list: 1. Metabolic encephalopathy. 2. Medical complexity with generalized debilitation. 3. Critical electrolyte abnormalities with hypokalemia, hypomagnesemia and hypocalcemia. 4. Total protein malnutrition. 5. Atrial fibrillation with rapid ventricular response. 6. History of anorexia x6 months. 7. Prior history of Schatzki's ring with dilation. 8. Diabetes mellitus. 9. History of permanent pacemaker with ICD. PLAN: The patient is a candidate for an acute inpatient rehabilitation stay when medically cleared and a bed available. We will be glad to follow along with you regarding rehab therapy needs. If he needs an EGD, would prefer be done on acute prior to coming to rehabilitation. Thank you for asking us to assist in this patient's care. <ELECTRONICALLY SIGNED> By: Vish King MD 12/06/20 1342 [id number] Vish King MD /nt
== END 2020-11-18 14:49 | DRG 640 ==
LOC: ER 09:22 → 2N 11:38 → EROBS 11:38 → 2N 18:29
PROVIDERS: Internal Medicine; Physician Assistant; Student in an Organized Health Care Education/Training Program; ADMIT Hospitalist; ATTEND Hospitalist
DX: E87.6 Hypokalemia (principal); G93.41 Metabolic encephalopathy; E43 Unspecified severe protein-calorie malnutrition; I48.20 Chronic atrial fibrillation, unspecified; E83.51 Hypocalcemia; E83.42 Hypomagnesemia; R53.81 Other malaise; E78.5 Hyperlipidemia, unspecified; R60.0 Localized edema; E11.9 Type 2 diabetes mellitus without complications; E53.8 Deficiency of other specified B group vitamins; R63.0 Anorexia; D63.8 Anemia in other chronic diseases classified elsewhere; I49.5 Sick sinus syndrome; N40.0 Benign prostatic hyperplasia without lower urinary tract symptoms; E78.00 Pure hypercholesterolemia, unspecified; E88.09 Other disorders of plasma-protein metabolism, not elsewhere classified; Z20.822 Contact with and (suspected) exposure to COVID-19; Z68.25 Body mass index [BMI] 25.0-25.9, adult; Z95.2 Presence of prosthetic heart valve; Z90.49 Acquired absence of other specified parts of digestive tract; Z95.0 Presence of cardiac pacemaker; Z98.49 Cataract extraction status, unspecified eye; Z86.19 Personal history of other infectious and parasitic diseases; Z79.899 Other long term (current) drug therapy; Z79.84 Long term (current) use of oral hypoglycemic drugs; Z79.82 Long term (current) use of aspirin; Z87.891 Personal history of nicotine dependence
CPT/HCPCS: 10081

== ENCOUNTER 2020-12-06 12:07 | Inpatient (IN) | payer OTHER, BC ==
--- NOTE | ~2020-12-06 | O ---
[facility] [place] [address] OPERATIVE REPORT Name: EDWARDO MORA Room #: 445-P [facility] IN M.R.#: [id number] Admission: 12/06/20 Attend Phys: Leticia Oconnell MD Discharge: Date of : 37 Report #: [id number] THIS REPORT FOR: cc: She Morales MD, Paula V. MD Patterson,Larry West MD ~ DATE OF SERVICE: 12/07/2020 PREOPERATIVE DIAGNOSIS: Symptomatic cholelithiasis with abnormal LFTs. POSTOPERATIVE DIAGNOSIS: Symptomatic cholelithiasis with abnormal LFTs. OPERATION: Laparoscopic cholecystectomy with intraoperative cholangiogram. SURGEON: Larry Montero MD ANESTHESIA: General. ESTIMATED BLOOD LOSS: 10 mL. SPECIMENS: Gallbladder. DESCRIPTION OF PROCEDURE: After informed consent was obtained, the patient was brought to the operating room and placed supine. SCDs were placed and working, preoperative antibiotics were administered, general anesthesia was induced. The abdomen was prepped and draped in the usual sterile fashion. A 10 mm incision was made below the umbilicus. Fascia was incised and a trocar was placed. A pneumoperitoneum was established. Three right upper quadrant 5 mm ports were placed under direct vision. The gallbladder was then grasped and retracted cephalad. Infundibulum was grasped and retracted laterally. I dissected out the cystic duct and the cystic artery. The cystic duct was clipped. A ductotomy was made. Cholangiogram catheter was inserted. Cholangiogram was performed. This demonstrated filling of the cystic duct, common bile duct, common hepatic duct with bifurcation of the hepatics, smooth easy flow into the duodenum without any filling defects. This was normal. Catheter was then removed. The cystic duct and artery were clipped and ligated leaving 2 clips on the remaining duct and one on the remaining artery. Gallbladder was then taken off the liver bed with electrocautery. It was placed into an Endopouch and removed. The fascia was then closed with a [id number] 0 Vicryl. Skin was closed with 4-0 Monocryl. Incisions were dressed with Steri-Strips. COMPLICATIONS: None. [facility] [address] [place] [address] OPERATIVE REPORT Name: EDWARDO MROA Room #: 445-P [facility] IN M.R.#: [id number] Admission: 12/06/20 Attend Phys: Leticia Oconnell MD Discharge: Date of : 37 Report #: [id number] DISPOSITION: The patient was taken to recovery in satisfactory condition. By: 1354 1434 Larry Montero MD /nt
[~2020-12-06 12:07] MED LIST changes: +ADULT LOW DOSE81 MG PO; +AMITIZA 24 MCG24 MC1 PO; +ARTHRITIS PAIN100 GM TOP; +CALTRATE-600 W1 EACH PO; +DIGOXIN250 MCG PO; +ELIQUIS5 MG PO; +FOLIC ACID1 MG PO; +MAGOX 400400 MG PO; +MIRALAX17 GM PO; +PEPCID20 MG PO; +REMERON 30 MG T30 M1 PO; +VITAMIN D325 MC2 PO
[2020-12-06 15:39] VITALS: BP 108/53
[2020-12-06 21:47] VITALS: BP 110/54
[2020-12-06 23:23] VITALS: BP 110/54
--- NOTE | 2020-12-07 02:57 | NUR ---
UPON SHIFT REPORT, PT ALERT WITH HIS AT BEDSIDE. PT EATING WITH , TOLERATING PO INTAKE OF FLUIDS AND REGULAR DIET WITHOUT ISSUE. PT VOIDING PER URINAL WITH X1 ASSISTANCE. PT DENIES PAIN AND SOB WHILE ON ROOM AIR. UPON SHIFT ASSESSMENT, PT SLEEPING, AWAKENING EASILY. PT ASSESSED WITH FLACC OF 0. PT REMAINS ON ROOM AIR WITHOUT DESATURATION. PT NPO AT MIDNIGHT. PT RESTING IN BED THROUGHOUT SHIFT, FREQUENT REPOSITIONING ENCOURAGED, PT NOTED TO SHIFT SLIGHTLY ON HIS OWN, REPOSITIONING ASSISTANCE REFUSED DUE TO PT COMFORT PREFERENCE. SENSATION INTACT, CAPILLARY REFILL LESS THAN 3SEC, PERIPHERAL PULSES PALPABLE IN ALL EXTREMITIES. PT ENCOURAGED TO NOTIFY STAFF FOR ALL NEEDS, CALL LIGHT WITHIN REACH, BED ALARM ON, BED LOCKED IN LOWEST POSITION, ROOM REMAINS NEAR NURSES STATION, FREQUENT MONITORING WILL CONTINUE.
[2020-12-07 07:02] LABS: ALBUMIN 2.2 g/dL (3.4-5.0); CALCIUM 8.1 mg/dL (8.5-10.1); MAGNESIUM 2.3 mg/dL (1.8-2.4); POTASSIUM 4.1 mmol/L (3.5-5.1); TOTAL BILIRUBIN 0.6 mg/dL (0.2-1.0); TOTAL PROTEIN 5.9 g/dL (6.4-8.2)
[2020-12-07 07:03] LABS: CREATININE 0.8 mg/dL (0.7-1.3)
[2020-12-07 10:03] LABS: ABSOLUTE NEUTROPHILS 10.7 thou/uL (1.4-8.2); BASOPHILS 0.6 % (0.0-2.0); HEMATOCRIT 32.3 % (42.0-52.0); LYMPHOCYTES 5.3 % (24.0-44.0); MCH 25.3 pg (26.0-34.0); MCHC 31.4 g/dL (28.0-37.0); POLYS 88.1 % (36.0-66.0); RBC 4.01 mil/uL (4.50-6.00); RDW 18.9 % (10.5-14.5); WBC 12.1 thou/uL (4.0-11.0)
[2020-12-07 10:56] LABS: MCV 80.5 fL (80.0-100.0); PLATELET COUNT 278 thou/uL (150-400)
[2020-12-07 10:57] LABS: HEMOGLOBIN 10.1 gm/dL (14.0-18.0)
--- NOTE | 2020-12-07 12:25 | NUR ---
ASSUMED PT CARE THIS AM. PT IS ALERT & ORIENTED X2. PT HAS IV SITE ON LFA RUNNING NS @75ML/HR. PT IS INCONTINENT AND HAS BRIEF ON AND USES URINAL. PT IS ACCUCHECK Q6H. PT HAS BEEN NPO SINCE MIDNIGHT. CALLED AND VERIFY IF PT HAVING MRI AND SURGERY TODAY. PER SURGEON, PT WILL NOT HAVE MRI AND WILL HAVE SURGERY THIS AFTERNOON. PT AT THE BEDSIDE AND INFORMED ABOUT THE SURGERY. PT IS ON TELE MONITOR ON. SENT COVID SWAB THIS AM. WILL CONTINUE TO MONITOR PT. FOLLOW POC.
[2020-12-07 15:40] VITALS: BP 155/35
[2020-12-07 20:23] VITALS: BP 99/44
[2020-12-08 00:57] VITALS: BP 103/56
[2020-12-08 05:25] VITALS: BP 134/67
[2020-12-08 06:03] LABS: ABSOLUTE NEUTROPHILS 9.1 thou/uL (1.4-8.2); BASOPHILS 0.2 % (0.0-2.0); EOSINOPHILS 0.3 % (0.0-3.0); HEMATOCRIT 30.1 % (42.0-52.0); HEMOGLOBIN 9.6 gm/dL (14.0-18.0); LYMPHOCYTES 9.5 % (24.0-44.0); MCH 25.8 pg (26.0-34.0); MCV 80.6 fL (80.0-100.0); MONOCYTES 7.9 % (1.0-8.0); PLATELET COUNT 231 thou/uL (150-400); POLYS 82.1 % (36.0-66.0); RBC 3.73 mil/uL (4.50-6.00); RDW 18.8 % (10.5-14.5)
--- NOTE | 2020-12-08 06:07 | NUR ---
Pt. rested quietly during the night when checked on during frequent rounds. Drowsy last evening, but much more alert this am. He c/o abdominal pain and po pain med given (see emar). Three lapsites to abdomen are dry and intact. Incontinent of urine and yong care given. Bed alarm is on.
[2020-12-08 08:08] VITALS: BP 112/57
--- NOTE | 2020-12-08 11:53 | NUR ---
ASSUMED PT CARE THIS AM. PT IS ALERT & ORIENTED X2. PT HAS IV SITE ON LFA RUNNING NS @75 ML/HR. PT IS INCONTINENT. INFORMED HOSPITALIST THAT PT HAD SURGERY YESTDAY AND 4 LAP SITES NOTED. PT IS ON ROOM AIR. PT IS ACCUCHECK Q6H. PT IS ON TELE MONITOR ON. WILL CONTINUE TO MONITOR PT. FOLLOW POC.
[2020-12-08 12:44] VITALS: BP 108/50
[2020-12-08 17:09] VITALS: BP 140/76
[2020-12-08 19:33] VITALS: BP 111/61
--- NOTE | 2020-12-09 02:54 | NUR ---
PT CONFUSED . ALERT TO SELF . FOLLOWS SOME COMANDS, SLEEPING PRESENTLY VSS AFEBRILE. VPACED ON THE MONITOR. INC OF URINE. BED DOWN. CALL LIGHT IN REACH. BED ALARM IS ON. NO C/O PAIN.
[2020-12-09 04:36] VITALS: BP 134/64
--- NOTE | 2020-12-09 06:43 | NUR ---
PT RESTING QUIETLY SLEEPING. HE AWAKENS EASILY. NO C/O PAIN/ NO S/S DISTRESS. MOISTURE BARRIER TO BUTTOCKS PT INC X2 LG AMTS.
[2020-12-09 07:44] VITALS: BP 125/51
--- NOTE | 2020-12-09 09:24 | NUR ---
Chart review, had gale bladder removed. He was dc from acute rehab for surgery He was getting ready to be dc home with his , naman walsh and possible private duty through [facility] [place] [address] [place] [address] acute rehab and [facility]. already had stair lift put in the home. 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 Prior to coming to hospital, he stayed home while his works. No dme, manage own medication and driving vehicle. Since hospital, recommendation, no driving till cleared by MD, or family to assist with medication and finances. Poor appetite prior to hospital, declined peg tube. Will cont following as needed for dc needs.
[2020-12-09 10:41] LABS: ALBUMIN 1.9 g/dL (3.4-5.0); CALCIUM 7.8 mg/dL (8.5-10.1); CREATININE 0.8 mg/dL (0.7-1.3); POTASSIUM 3.8 mmol/L (3.5-5.1); TOTAL BILIRUBIN 0.8 mg/dL (0.2-1.0); TOTAL PROTEIN 5.4 g/dL (6.4-8.2)
[2020-12-09 12:23] VITALS: BP 123/58
[2020-12-09] MEDS ORDERED: HYDROCODON-ACE1 EAC7 PO (12:41)
[2020-12-09 15:37] VITALS: BP 122/56
[2020-12-09 19:35] VITALS: BP 113/60
[2020-12-09 23:33] VITALS: BP 105/62
[2020-12-10 04:18] VITALS: BP 141/70
--- NOTE | 2020-12-10 06:31 | NUR ---
Pt A/OX1-2,able to make simple needs known. VSS. Incontinent of B&B. Max assist with transfers. Has 3 lap sites on abd C/D/I with steri-strips. Denies pain on assessment. Vpaced on telemetry. Fall precautions in place,will continue to monitor pt.
[2020-12-10 07:40] VITALS: BP 106/68
--- NOTE | 2020-12-10 12:13 | NUR ---
Cm provided updates to [facility] after speaking with daughter carol ann, family would like him to have rehab and then come home. No ready for dc today, rule out stroke per hospitalist.
[2020-12-10 13:35] LABS: HEMATOCRIT 29.2 % (42.0-52.0); HEMOGLOBIN 9.3 gm/dL (14.0-18.0); MCH 25.8 pg (26.0-34.0); MCHC 31.9 g/dL (28.0-37.0); MCV 80.8 fL (80.0-100.0); RBC 3.61 mil/uL (4.50-6.00)
[2020-12-10 13:45] LABS: CALCIUM 7.5 mg/dL (8.5-10.1); POTASSIUM 3.5 mmol/L (3.5-5.1)
[2020-12-10 13:50] LABS: ALBUMIN 1.9 g/dL (3.4-5.0); MAGNESIUM 1.9 mg/dL (1.8-2.4); TOTAL BILIRUBIN 1.2 mg/dL (0.2-1.0); TOTAL PROTEIN 5.4 g/dL (6.4-8.2)
[2020-12-10 15:21] LABS: URINE BILIRUBIN NEGATIVE (Negative); URINE BLOOD NEGATIVE (Negative); URINE CLARITY SL CLOUDY; URINE COLOR YELLOW; URINE GLUCOSE-RANDOM* TRACE (Negative); URINE KETONES 1+ (Negative); URINE LEUKOCYTES-REFLEX TRACE (Negative); URINE NITRITE-REFLEX NEGATIVE (Negative); URINE PROTEIN (DIPSTICK) TRACE (Negative); URINE SPECIFIC GRAVITY >= 1.030 (1.005-1.035)
--- NOTE | 2020-12-10 15:34 | NUR ---
CARE TAKEN OVER THIS AM, PT ALERT AND ORIENTED X2, DISOIEMTED TO PLACE AND SITUATION. DENIE ANY CHEST PAIN OR ANY PAIN. NO NUMBNESS OR TINGLING. PER PT , PT WAS CONVERSING MORE AND DIDNT SEEM CONFUSE COMPARE TODAY. DR. ALDRICH MADE AWARE, AND STATED HE WILL PUT SOME ORDERS IN. PT UP IN CHAIR WITH MAX ASSIST, SEEMED MORE WEAK PER PT/OT. FALL PRECAUTIONS IN PLACE. PT FAMILY HERE AND UPDATED ABOUT CARE.
[2020-12-10 16:01] VITALS: BP 86/51
[2020-12-10 19:33] VITALS: BP 113/62
[2020-12-11 04:31] VITALS: BP 110/60
--- NOTE | 2020-12-11 05:00 | NUR ---
RECEIVED CARE OF THIS PATIENT AT 1900. PATIENT ALERT AND ORIENTED TO SELF ONLY. HAS HAD NO IMPULSIVE BEHAVIOR OR ANY ABNORMAL BEHAVIOR THIS SHIFT. 3 SMALL INCISIONS ON ABD HEALING. PACE MAKER. UP WITH MAX ASSIST. DENIES PAIN. SLEPT MOST OF NIGHT.
[2020-12-11 06:45] LABS: HEMATOCRIT 30.7 % (42.0-52.0); HEMOGLOBIN 9.9 gm/dL (14.0-18.0); MCH 25.9 pg (26.0-34.0); MCHC 32.1 g/dL (28.0-37.0); MCV 80.6 fL (80.0-100.0); RBC 3.81 mil/uL (4.50-6.00); RDW 18.7 % (10.5-14.5); WBC 10.8 thou/uL (4.0-11.0)
[2020-12-11 07:00] LABS: CALCIUM 7.7 mg/dL (8.5-10.1); CREATININE 0.8 mg/dL (0.7-1.3); POTASSIUM 3.2 mmol/L (3.5-5.1)
[2020-12-11 08:26] VITALS: BP 124/71
--- NOTE | 2020-12-11 11:08 | PATH ---
[facility] [address] [place] [address] PATHOLOGY RPT PROCEDURE Name: EDWARDO MORA Room #: 445-P [facility] IN M.R.#: [id number] Admission: 12/06/20 Date of : 37 Discharge: Report #: [id number] Path Case #: [id number] [facility] Accession Number: [id number] . 01 Material submitted: . gallbladder - GALLBLADDER . 01 Clinical history: . CHOLELITHIASIS . 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 (SCA:saul; 12/10/2020) [facility] 12/10/2020 1352 Local . 02 Electronically signed: . Lorenzo Nielsen DO, Pathologist NPI- [id number] . 01 Gross description: . Fixative: Formalin Labeled: Gallbladder Specimen received: Previously disrupted with a transmural defect (0.4 x 0.3 cm) Dimensions: 4.2 x 4.0 x 3.9 cm Lymph node: None Serosa: Blue-green and dusky Calculi: 3.6 x 1.9 x 1.7 Mucosa: Green and velvety with minimal aaron stippling Average wall thickness: Ranging from 0.2 cm to 1.4 cm Abnormalities: The dome displays a submucosal dark green, edematous and gelatinous area of thickening (approximately 5.5 x 1.4 x 1.3 cm) A1-A3: Gallbladder, represented to show edematous and gelatinous area of dome represented in A2-A3 ([facility]; 12/09/2020) DKA/DKA 12/09/2020 1539 Local . 02 Pathologist provided ICD-10: K80.10, K82.4 . 02 CPT . 817168 Specimen Comment: Report sent to Performed at: [address] [id number] [place] [address] PATHOLOGY RPT PROCEDURE Name: EDWARDO MORA Room #: 445-P [facility] IN .R.#: [id number] Admission: 12/06/20 Date of : 37 Discharge: Report #: [id number] Path Case #: [id number] MD Zeferino Atkins MD Phone: [phone] Performed at: [address], [place] [id number] MD Abhinav Asif MD Phone: [phone]
[2020-12-11 11:20] VITALS: BP 116/65
[2020-12-11] MEDS ORDERED: CARDIZEM CD120 MG PO (12:11)
[2020-12-11] MEDS ORDERED: CEFUROXIME500 MG PO (12:13)
--- NOTE | 2020-12-11 12:57 | NUR ---
Pt dcing to snf at [facility] today. They have arranged for a 5pm w/c van ride. updated along with unit staff. Chart copy in progress. 124c and dc orders have been faxed to anish in admissions. She will call the to confirm visitor policy and discuss what to bring for him and paperwork. Pt to be skilled for therapy. His goal is to return home with family.
--- NOTE | 2020-12-11 15:55 | NUR ---
AT 0808 PAGE WENT OUT FOR POTASSIUM OF 3.2 DR SANTOS PHONE CALL AT 0830. ORDER GIVEN FOR POTASSIUM 40 MEQ PO X 1. READ BACK AND VERIFIED. ORDERS ENTERED INTO COMPUTER. NO FURTHER ORDERS GIVEN.
[2020-12-11 16:03] VITALS: BP 120/59
--- NOTE | 2020-12-11 17:19 | NUR ---
PT IS BEING DISCHARGED TO [facility], ALL ITEMS WITH PATIENT.
== END 2020-12-11 17:33 | DRG 417 ==
LOC: TBA 12:07 → 4S 14:50
PROVIDERS: Internal Medicine; Nurse Practitioner; ADMIT Hospitalist; ATTEND Hospitalist
PROC: 0FT44ZZ Resection of Gallbladder, Percutaneous Endoscopic Approach (ICD-10-PCS; principal; 2020-12-07)
PROC: BF101ZZ Fluoroscopy of Bile Ducts using Low Osmolar Contrast (ICD-10-PCS; principal; 2020-12-07)
DX: K80.00 Calculus of gallbladder with acute cholecystitis without obstruction (principal); G92.9 Unspecified toxic encephalopathy; N17.9 Acute kidney failure, unspecified; N39.0 Urinary tract infection, site not specified; I48.20 Chronic atrial fibrillation, unspecified; E44.0 Moderate protein-calorie malnutrition; G93.40 Encephalopathy, unspecified; K83.9 Disease of biliary tract, unspecified; D50.9 Iron deficiency anemia, unspecified; M54.9 Dorsalgia, unspecified; F32.A Depression, unspecified; Z68.25 Body mass index [BMI] 25.0-25.9, adult; Z20.822 Contact with and (suspected) exposure to COVID-19; Z90.49 Acquired absence of other specified parts of digestive tract; Z79.899 Other long term (current) drug therapy; K59.00 Constipation, unspecified; G89.29 Other chronic pain; R74.01 Elevation of levels of liver transaminase levels; E11.9 Type 2 diabetes mellitus without complications
CPT/HCPCS: 10100; 50010; 50101; 50411; 50555; 51489; 52265; 52266; 53307; 53312; 53314; 55245; 55317; 56462; 56525; 56526; 58574; 62110; 62900; 65131; 70005